=== PATIENT | male | born 1995 | race Two or more races ===

== ENCOUNTER 2024-08-18 15:43 | Outpatient (CLI) | payer SELFPAY ==
[2024-08-18 15:08] LABS: Abs Immature Grans 0.02 10^3/uL (0.0-0.06); Absolute Basophil Count 0.05 10^3/uL (0.0-0.2); Absolute Eosinophil Count 0.38 10^3/uL (0.0-0.7); Absolute Lymphocyte Count 2.13 10^3/uL (1.2-3.4); Absolute Monocyte Count 0.42 10^3/uL (0.1-0.8); Absolute Neutrophil Count 4.49 10^3/uL (1.2-6.7); Basophils % 0.7 %; Eosinophils % 5.1 %; HCT 38.1 % (40.0-50.0); HGB 13.3 g/dL (13.5-17.5); Immature Grans % 0.3 %; Lymphocytes % 28.4 %; MCH 32.4 pg (27.0-33.0); MCHC 34.9 % (32.0-36.0); MCV 93 fL (80-95); MPV 9.1 fL (8.0-11.0); Monocytes % 5.6 %; Neutrophils % 59.9 %; Platelet Count 325 10^3/uL (130-400); RDW 11.9 % (11.8-14.1); RDW-SD 40.4 fL; WBC 7.49 10^3/uL (4.4-10.8)
[2024-08-18 16:03] LABS: ALT 42 U/L (16-63); AST 20 U/L (15-37); Albumin 4.4 g/dL (3.4-5.0); Alkaline Phosphatase 91 U/L (46-116); Anion Gap 6.1 mmol/L (3-11); BUN 16 mg/dL (7-18); Bilirubin, Total 0.31 mg/dL (0.2-1.0); CO2 28.9 mmol/L (21.0-32.0); Calcium 9.1 mg/dL (8.5-10.1); Chloride 106 mmol/L (98-107); Estimated GFR 104.48 (mL/min/1.73m2); Glucose 93 mg/dL (74-106); Potassium 3.8 mmol/L (3.5-5.1); Sodium 141 mmol/L (136-145)
[2024-08-19 09:36] LABS: Hepatitis B Surface Ag Negative (Negative)
[2024-08-19 09:43] LABS: Syphilis Serology (RPR) Negative (Negative)
[2024-08-19 09:47] LABS: 4/8 Ratio 0.54 (>=0.90); Absolute CD3 1639 Cells/uL (840-2669); Absolute CD8 997 Cells/uL (154-1097); CD3 81 % (56-84); CD4 27 % (31-64); CD8 49 % (9-39)
[2024-08-19 10:09] LABS: Hepatitis C Ab w Rflx HCV PCR Negative (Negative)
[2024-08-19 11:22] LABS: HBs Antibody, Quant <3.1 mIU/mL (See Note); Hepatitis B Surface Ab Negative (See Note)
[2024-08-19 12:27] LABS: Hep A Total Ab w Rflx IgM Positive (Negative)
[2024-08-19 14:50] LABS: Hep B Core Antibody Negative (Negative)
[2024-08-19 17:56] LABS: Hep A Antibody IgM Negative (Negative)
[2024-08-21 13:04] LABS: HIV 1 RNA Qualitative Undetected Copys/mL (Undetected)
== END 2024-08-18 15:44 | disposition home or self-care (01) ==
LOC: LBO 15:44
PROVIDERS: Visit Provider Nurse Practitioner Family
DX: B20 Human immunodeficiency virus [HIV] disease (principal); Z79.899 Other long term (current) drug therapy
CPT/HCPCS: 36415; 80053; 86704; 86706; 86709; 86803; 87340; 87536; 85025; 86359; 86360; 86592